=== PATIENT | male | born 1995 | race Hispanic/Latino ===

== ENCOUNTER 2017-01-28 21:51 | Emergency (ER) | payer MEDICAID, SELFPAY ==
[2017-01-29 00:55] LABS: Anion Gap 14 mmol/L (10-20); BUN (Urea Nitrogen) 15 mg/dL (8.4-21.0); Calc. Creatinine Clearance 0 mL/min (70-130); Calcium 9.3 mg/dL (7.8-10.44); Carbon Dioxide 27 mmol/L (22-29); Chloride 101 mmol/L (98-107); Estimated GFR-MDRD Greater than 90
[2017-01-29] MEDS ORDERED: Metoclopramide HCl 10 MG/2 ML VIAL ONE (01:06)
[2017-01-29] MEDS ORDERED: diphenhydrAMINE 25 MG CAP ONE (01:07)
[2017-01-29] MEDS ORDERED: diphenhydrAMINE 50 MG CAP ONE ×2 (01:07)
[2017-01-29] MEDS ORDERED: diphenhydrAMINE 50 MG/ML VIAL ONE (01:07)
== END 2017-01-29 02:14 | disposition home or self-care (01) ==
LOC: ERS 21:51
DX: R51 Headache (principal); Z79.899 Other long term (current) drug therapy
CPT/HCPCS: 36415; 80048; 96361; 96374; 96375; J1200; J2765

== ENCOUNTER 2018-02-07 20:26 | Emergency (ER) | payer SELFPAY ==
[2018-02-07] MEDS ORDERED: Diazepam 5 MG TAB ONE (20:43)
[2018-02-07] MEDS ORDERED: Ketorolac Tromethamine 60 MG/2 ML VIAL ONE (20:43)
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
== END 2018-02-07 21:42 | disposition home or self-care (01) ==
LOC: ERS 20:26
DX: S16.1XXA Strain of muscle, fascia and tendon at neck level, initial encounter (principal); R07.89 Other chest pain; V49.9XXA Car occupant (driver) (passenger) injured in unspecified traffic accident, initial encounter
CPT/HCPCS: 70450; 72125; 96372; J1885